=== PATIENT | male | born 1960 | race Caucasian/White ===

== ENCOUNTER 2017-01-28 08:25 | Emergency (ER) | payer BC, OTHER ==
[2017-01-28 08:38] VITALS: BP 147/89
[2017-01-28] MEDS ORDERED: ORPHENADRINE CITRATE 30 MG/ML VIAL ONE (08:43)
[2017-01-28] MEDS ORDERED: ORPHENADRINE CITRATE 30 MG/ML VIAL IM ONE (08:43)
[2017-01-28] MEDS ORDERED: KETOROLAC TROMETHAMINE 60 MG/2 ML VIAL IM ONE ×2 (08:43)
--- NOTE | 2017-01-28 08:52 | ERNOTE ---
Back Pain ER HPI Presenting Symptoms: hx chronic back pain Time Seen by Provider: 01/28/17 08:40 Exam Limitations: no limitations Immunizations: IMMUNIZATION HX Immunizations Up to Date Yes History of Influenza Vaccine No Hx Pneumococcal Vaccination No Allergies/Adverse Reactions: Allergies No Known Allergies Allergy (Verified 01/28/17 08:38) Home Medications: HOME MEDICATIONS Hydrochlorothiazide [Hydrodiuril] 25 mg PO DAILY 01/22/14 [Last Taken Unknown] Lisinopril [Zestril] 20 mg PO DAILY 01/22/14 [Last Taken Unknown] Sertraline HCl [Zoloft] 100 mg PO DAILY 11/23/15 [Last Taken Unknown] Acetaminophen [Tylenol] 650 mg PO QID PRN #0 tablet 11/24/15 [Last Taken Unknown ] Cyclobenzaprine HCl [Flexeril] 10 mg PO TID PRN #30 tab 01/28/17 [Last Taken Unknown] Naproxen [Naprosyn] 500 mg PO BID #60 tablet 01/28/17 [Last Taken Unknown] traMADol HCL [Ultram] 50 mg PO QID PRN #20 tablet 01/28/17 [Last Taken Unknown] Narrative: Patient presents with an exacerbation of his chronic low back pain. States that he always has low back pain however it's gotten worse over the last 3-4 days and now has spasm down the outside of the right thigh. He describes the pain as moderate in severity and perhaps an 8 on a scale of 1-10. Timing: Reports: constant, getting worse Quality/Severity: Reports: moderate Location of pain: Reports: lower back, radiating to rt thigh/leg Activities at Onset: Reports: none Recent Injury?: Reports: no Modifying Factors - (Improves): Reports: other - heat helps somewhat Associated Symptoms: Reports: none Review of Systems - Review of Systems Constitutional: Present: See HPI EYE: Present: no symptoms reported ENT: Present: no symptoms reported Respiratory: Present: no symptoms reported Cardiology: Present: no symptoms reported Gastrointestinal/Abdominal: Present: no symptoms reported Genitourinary: Present: no symptoms reported Musculoskeletal: Present: back pain, muscle pain, muscle stiffness Skin: Present: no symptoms reported Neurological: Present: no symptoms reported Endocrine: Present: no symptoms reported Hematologic/Lymphatic: Present: no symptoms reported Psych: Present: no symptoms reported - Patient's Past Medical History Patient History - Medical: Other - chronic back pain Patient History - Cardiac/Respiratory: Hypertension Patient History - Cancer: No Hx of Cancer Patient History - Surgical Procedures: No surgical history Patient History - Other: None - Family History Father Family History - Cardiac/Respiratory: Coronary Heart Disease Mother Family History - Cardiac/Respiratory: Hypertension - Social History Living Situations: home Abuse History: No History of abuse Psych History: Hx of Depression Does anyone smoke in the home?: No Smoking Status: Never smoker Have you smoked in the past 12 months: No Alcohol Use: occasionally Drug Use: none - Immunizations Immunizations Up to Date: Yes Hx Pneumococcal Vaccination: No History of Influenza Vaccine: No Physical Exam - Physical Exam General Appearance: Present: wd/wn, alert, moderate distress Eye Exam: Normal inspection: bilateral, PERRL: bilateral Ears, Nose, Throat: Present: normal ENT inspection, H, normal pharynx Neck: Present: normal inspection, nontender Respiratory: Present: no respiratory distress, normal breath sounds, no accessory muscle use, chest nontender, lungs clear Cardiovascular/Chest: Present: regular rate, rhythm, no murmur, normal peripheral pulses Gastrointestinal/Abdominal: Present: normal bowel sounds, nontender, nondistended, soft, no organomegaly Rectal Exam: Present: deferred Back Exam: Present: decreased range of motion, muscle spasm, other - tenderness in the right SI joint Extremity Exam: Present: normal inspection, non-tender, no edema, normal range of motion Neurological Exam: Present: alert, oriented, normal mood/affect Skin Exam: Present: normal color, warm/dry Lymphatic Exam: Present: no adenopathy ED Progress - Vital Signs Patient's Vital Signs:: I have reviewed the patient's vital signs. Vital Signs: Vital Signs 01/28/17 08:35 Temperature 37.1 C Pulse Rate 78 Respiratory 14 Rate Blood Pressure 147/89 O2 Sat by Pulse 97 Oximetry - Progress/Reassessment Chief Complaint: Back Pain Plan - Plan Plan: Patient will be sent home on muscle relaxers, NSAIDs and some tramadol for the breakthrough pain. Should see his family physician this week he will go home and try some stretching exercises and heat. Departure Clinical Impression: Muscle spasm Back pain Qualifiers: Back pain location: low back pain Chronicity: chronic Back pain laterality: right Sciatica presence: without sciatica Qualified Code(s): M54.5 - Low back pain; G89.29 - Other chronic pain - Departure Disposition: Home self-care Condition: Good Instructions: Back Pain, Adult, Muscle Cramps and Spasms, [id number] Referrals: Henry Rosas DO [Primary Care Provider] - Prescriptions: Cyclobenzaprine HCl [Flexeril] 10 mg PO TID PRN #30 tab PRN Reason: MUSCLE SPASMS Naproxen [Naprosyn] 500 mg PO BID #60 tablet traMADol HCL [Ultram] 50 mg PO QID PRN #20 tablet PRN Reason: Moderate Pain
--- OUTSIDE RECORDS SUMMARY | 2017-01-28 08:52 | XMS REPORT | Continuity of Care Document ---
:1960 Author Organization [facility] ([facility]) [place] [address] Phone [phone] Care Team Providers Name Role Phone Provider, No-Primary Care Primary Care Provider Unavailable Source Comments This disclosure is being made pursuant to the Care Everywhere program, applicable federal and state laws, and may not contain all informaitonavailable regarding this patient.[facility] ([facility]) Active Allergies and Adverse Reactions Not on File Current Medications Not on file Active Problems Not on file Social History Tobacco Use Types Packs/Day Years Used Date Never Assessed Plan of Care Health Maintenance Due Date Last Done Comments HCV Screening 1960 Hepatitis B Vaccine (1 of 3 - Primary Series) 1960 Tdap Vaccine 1973 Lipid Disorder Screening 1980 MMR Vaccine 1980 Td Vaccine 1980 Colonoscopy 08/08/2012 Prostate Cancer Screening 2012 Influenza Vaccine: Seasonal (#1) 05/01/2016 Results from Last 3 Months Not on file
[2017-01-28] MEDS ORDERED: HYDROcodone/ACETAMINOPHEN 1 EACH TABLET PO ONE (09:24)
[2017-01-28] MEDS ORDERED: HYDROcodone/ACETAMINOPHEN 1 EACH TABLET ONE (09:24)
== END 2017-01-28 09:34 | disposition home or self-care (01) ==
LOC: ER 08:25
DX: M62.830 Muscle spasm of back (principal); M54.5 Low back pain; G89.29 Other chronic pain; I10 Essential (primary) hypertension

== ENCOUNTER 2017-01-29 04:50 | Emergency (ER) | payer BC ==
--- NOTE | 2017-01-29 05:22 | ERNOTE ---
Back Pain ER HPI Date of Service: 01/29/17 Time Seen by Provider: 01/29/17 05:10 Source: patient Exam Limitations: no limitations Immunizations: IMMUNIZATION HX Immunizations Up to Date Yes History of Influenza Vaccine No Hx Pneumococcal Vaccination No Allergies/Adverse Reactions: Allergies No Known Allergies Allergy (Verified 01/28/17 08:38) Home Medications: HOME MEDICATIONS Hydrochlorothiazide [Hydrodiuril] 25 mg PO DAILY 01/22/14 [Last Taken Unknown] Lisinopril [Zestril] 20 mg PO DAILY 01/22/14 [Last Taken Unknown] Sertraline HCl [Zoloft] 100 mg PO DAILY 11/23/15 [Last Taken Unknown] Acetaminophen [Tylenol] 650 mg PO QID PRN #0 tablet 11/24/15 [Last Taken Unknown ] Cyclobenzaprine HCl [Flexeril] 10 mg PO TID PRN #30 tab 01/28/17 [Last Taken Unknown] Naproxen [Naprosyn] 500 mg PO BID #60 tablet 01/28/17 [Last Taken Unknown] traMADol HCL [Ultram] 50 mg PO QID PRN #20 tablet 01/28/17 [Last Taken Unknown] Narrative: pt here for recheck of chronic back pain exacerbation for which he was seen less than 24 hours ago , here, by Dr Guaman and started on flexeril, napoxen and ultram. 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 On the way here EMS gave him fentanyl and he is now improving. No history of new trauma/injury. Denies loss of bowel or bladder control. Review of Systems - Review of Systems Constitutional: Present: See HPI All Other Systems: All systems neg except as marked - Patient's Past Medical History Patient History - Medical: Obesity, Other Patient History - Cardiac/Respiratory: Hypertension Patient History - Cancer: No Hx of Cancer Patient History - Surgical Procedures: No surgical history Patient History - Other: None - Family History Father Family History - Cardiac/Respiratory: Coronary Heart Disease Mother Family History - Cardiac/Respiratory: Hypertension - Social History Living Situations: home Abuse History: No History of abuse Psych History: Hx of Depression Does anyone smoke in the home?: No Smoking Status: Never smoker Alcohol Use: occasionally Drug Use: none - Immunizations Immunizations Up to Date: Yes Hx Pneumococcal Vaccination: No History of Influenza Vaccine: No Physical Exam - Physical Exam General Appearance: Present: wd/wn, alert, moderate distress - SHORT OBESE MAN. ALERT AND ORIENTED, RUBBING ANT. RIGHT THIGH. Respiratory: Present: no respiratory distress, normal breath sounds Cardiovascular/Chest: Present: regular rate, rhythm, no murmur Peripheral Pulses: N=norm/S=strong/W=weak/B=bound/A=absent: Dorsalis-pedis (R): Normal, Dorsalis-pedis (L): Normal Gastrointestinal/Abdominal: Present: normal bowel sounds, nontender, nondistended, soft, no organomegaly Extremity Exam: Present: normal inspection, non-tender, normal range of motion, no edema Neurological Exam: Present: alert, oriented, no motor/sensory deficits DTR: N=norm/NB=norm/brisk/A=abs/DD=dull/dimin/HC=hyperactive: Knee (R): Normal, Knee (L): Normal, Ankle (R): Normal, Ankle (L): Normal Skin Exam: Present: normal color, warm/dry ED Progress - Vital Signs Vital Signs: Vital Signs 01/29/17 04:53 Temperature 36.4 C L Pulse Rate 88 Respiratory 18 Rate Blood Pressure 189/89 O2 Sat by Pulse 95 Oximetry - Progress/Reassessment Chief Complaint: Back Pain Progress:: Improved - SOME BETTER AFTER FENTANYL RECEIVED FROM EMS ENROUTE HERE. HE HAS NOT USED THE NAPROXEN SAYING THE PHARMACIST TOLD HIM NOT TO TAKE ALL THE MEDS PRESCRIBED TOGETHER. IS EXPLAINED THAT IT IS OKAY TO DO SO THEY ARE ALL SEPERATE MEDS AND THERE IS NO CONTRAINDICATION TO USING THEM TOGETHER THOUGH HE DIDN'T HAVE TO IF THE NSAID AND RELAXANT ALONE GAVE RELIEF. HE ALSO HAS BEEN IMOBILE SINCE HERE AND IS SUGGESTED THAT SOME GENTLE ACTIVITY IS BETTER THAN COMPLETE BED REST. HE SAYS HE HAS USED SOME PHYSICAL ADJUNCTS ( ICE ,HEAT ,OINTMENTS ) BUT IT DOES NOT SOUND LIKE HE IS DOING SO REGULARLY. Departure Clinical Impression: Chronic low back pain with sciatica Qualifiers: Back pain laterality: right Sciatica laterality: sciatica of right side Qualified Code(s): M54.41 - Lumbago with sciatica, right side - Departure Disposition: Home Follow Up Needed Condition: Fair Instructions: Sciatica With Rehab-SportsMed, Low Back Sprain With Rehab- SportsMed, Back Pain, Adult, Back Exercises Additional Instructions: REMEMBER YOU CAN USE ALL THRE OF THE PRESCRIBED MEDICATIONS DIRECTED. YOU SHOULD USE THE NAPROXEN AND FLEXERIL REGULARLY DIRECTED AND ADD THE ULTRAM FOR EXTRA RELIEF IF NEEDED AGAIN DIRECTED. THEY ARE MEDS THAT CAN BE USED TOGETHER BUT IF GETTING IMPROVEMENT WITH THE NAPROXEN AND FLEXERIL ALONE IT IS NOT NECESSARY TO ADD THE ULTRAM. FOLLOW UP PLANNED AND IF NOT IMPROVING YOU MAY NEED TO SEE YOUR FAMILY DOCTOR IN ADDITION OR GET REFERRAL TO A BACK SPECIALIST. SOMETIMES PHYSICAL THERAPY IS USED TO HELP YOU SENIOR CARE IN RELIEF AND PREVENTION. TRY TO AVOID PROLONGED IN ACTIVITY, BUT ONLY DO GENTLE ACTIVITY. USING ADJUNCTS LIKE 20 MINUTES OR ICE FOLLOWED BY 2O MINS OF HEAT TO THE SORE AREA EVERY 4 HOURS AND TOPICAL OINTMENTS LIKE DCAPSACIN, OR PREFPRM OR BIO-FREEZE - ALL AVAILABLE OVER THE COUNTER - CAN HELP. IT CAN BE A SLOW PROCESS TO GET BACK TO NORMAL.
--- OUTSIDE RECORDS SUMMARY | 2017-01-29 05:23 | XMS REPORT | Continuity of Care Document ---
:1960 Author Organization [facility] ([facility]) [place] [address] Phone [phone] Care Team Providers Name Role Phone Provider, No-Primary Care Primary Care Provider Unavailable Source Comments This disclosure is being made pursuant to the Care Everywhere program, applicable federal and state laws, and may not contain all informaitonavailable regarding this patient.[facility] ([facility]) Active Allergies and Adverse Reactions Not [...]
[2017-01-29 05:42] VITALS: BP 171/93
== END 2017-01-29 05:55 | disposition home or self-care (01) ==
LOC: ER 04:50
DX: M54.41 Lumbago with sciatica, right side (principal); F32.9 Major depressive disorder, single episode, unspecified; I10 Essential (primary) hypertension